=== PATIENT | female | born 1995 | race Hispanic/Latino ===

== ENCOUNTER 2018-04-25 15:08 | Outpatient (CLI) | payer BC ==
--- NOTE | 2018-04-25 16:39 | ULT ---
PELVIC ULTRASOUND WITH DOPPLER (TRANSABDOMINAL, TRANSVAGINAL, LR SCALE, COLOR FLOW AND SPECTRAL DOPPLER) 04/25/18 HISTORY: Left pelvic pain. FINDINGS: The uterus measures 10.2 x 3.9 x 5.2 cm without focal mass or endometrial fluid. The endometrium molly ures 5 mm in thickness. The right ovary measures 2.9 x 1.3 x 1.7 cm. The left ovary measures 2.5 x 1.2 x 2.1 cm. No adnexal m asses seen on either side. Flow is demonstrated to both ovaries. No free fluid is seen in cul-de-sac. There are prominent vessels adjacent to around the cervix and left ovary. IMPRESSION: Prominent vessels adjacent to the cervix and left ovary. Otherwise unremarkable exam. POS: [facility]
== END 2018-04-25 15:09 | disposition home or self-care (01) ==
LOC: BICULT 15:08
PROVIDERS: ATTEND Nurse Practitioner Family
DX: R10.2 Pelvic and perineal pain (principal)
CPT/HCPCS: 76856

== ENCOUNTER 2018-12-04 11:35 | Emergency (ER) | payer BC ==
[2018-12-04] MEDS ORDERED: Cyclobenzaprine 10 MG TAB ONE (13:07)
== END 2018-12-04 13:30 | disposition home or self-care (01) ==
LOC: ERS 11:35
DX: S39.012A Strain of muscle, fascia and tendon of lower back, initial encounter (principal); X50.0XXA Overexertion from strenuous movement or load, initial encounter
CPT/HCPCS: 99283

== ENCOUNTER 2021-02-23 15:06 | Outpatient (CLI) | payer BC | END 2021-02-23 15:07 | disposition home or self-care (01) | LOC: BICULT 15:06 | PROVIDERS: ATTEND Nurse Practitioner Family | DX: N63.31 Unspecified lump in axillary tail of the right breast (principal) | CPT/HCPCS: 76999 ==